=== PATIENT | female | born 1950 | race Caucasian/White ===

== ENCOUNTER 2020-08-26 13:22 | Emergency (ER) | payer MEDICARE, OTHER, SELFPAY ==
[2020-08-26] VITALS (22 sets, daily range): BP systolic 184–241; BP diastolic 79–109; PULSE 55–66; RESP 6–21; TEMP 36.7; O2SAT 96–100; BMI 31.2
--- NOTE | 2020-08-26 13:39 | DI.RAD.S_ITS ---
PROCEDURE: XR CHEST 1V INDICATIONS: chest pain TECHNIQUE: One view of the chest was acquired. COMPARISON: None. FINDINGS: Surgical changes and devices: None. Lungs and pleura: Lungs are clear. No pleural effusions or pneumothorax. Mediastinum: Mediastinal contours appear normal. Heart size is normal. Bones and chest wall: No suspicious bony lesions. Overlying soft tissues appear unremarkable. IMPRESSION: No acute cardiopulmonary abnormalities or focal airspace disease. Dictated by: Agapito Ruiz M.D. on 08/26/2020 at 13:20 Approved by: Agapito Ruiz M.D. on 08/26/2020 at 13:20
[2020-08-26 13:49] LABS: Add Manual Diff / Slide Review NO; Basophils Absolute Auto 100 /uL (0-100); Basophils Percent Auto 0.9 % (0-2); Eosinophils Absolute Auto 300 /uL (0-450); Eosinophils Percent Auto 2.4 % (2-4); Hematocrit 42.6 % (36-46); Hemoglobin 14.3 g/dL (12.0-16.0); Lymphocytes Absolute Auto 3200 /uL (1100-4500); Lymphocytes Percent Auto 29.6 % (25-40); Mean Corpuscular HGB Conc 33.4 % (30-36); Mean Corpuscular Hemoglobin 31.4 PG (26-34); Mean Corpuscular Volume 93.8 fL (80-100); Monocytes Absolute Auto 900 /uL (0-900); Monocytes Percent Auto 7.9 % (3-14); Neutrophils Absolute Auto 6400 /uL (1500-7000); Neutrophils Percent Auto 59.2 % (50-75); Platelet Count 286 X10^3/uL (150-400); Red Blood Cell Count 4.54 X10^6/uL (4.0-5.2); Red Cell Distribution Width 14.6 % (11.6-14.8); White Blood Cell Count 10.9 X10^3/uL (4.5-11.0)
--- NOTE | 2020-08-26 13:53 | ED.GENADULT ---
HPI - General Adult <ALBIN Maldonado - Last Filed: 08/26/20 19:06> General Chief complaint: Hypertension Stated complaint: Very high BP reading 234/94 @ 12:55ish Time Seen by Provider: 08/26/20 13:39 History of Present Illness HPI narrative: 70yo female with a history of allergies, takes albuterol for asthma, presents to emergency department for elevated blood pressure and a headache. She was recently diagnosed with hypertension on 08/17/2020 from her primary care provider, she was started on metoprolol. She states she takes the metoprolol at night, she believes that it makes her itch tissue takes Benadryl as well. Patient states she got up today and noticed a pounding in her head and a ?whooshing sound in my ears ?, she measured her blood pressure noticed it was 240 systolic. She states when she initially to the metoprolol on day 1 she felt like a tight band around her chest was relieved. She reports increased acid reflux over the past few weeks. She denies any other symptoms such as headache at this time, do full vision, blurry vision, vision loss, chest pain, abdominal pain, nausea, vomiting, diarrhea, or other concerns. She does states that she always has shortness of breath issues for the past few years and she believes this is due to allergies, this is relieved after administration of Benadryl. Related Data Previous Rx's Medication Instructions Recorded labetalol 50 mg PO BID 14 Days #14 tab 08/26/20 Allergies Allergy/AdvReac Type Severity Reaction Status Date / Time No Known Drug Allergies Allergy Verified 08/26/20 13:55 Review of Systems <ALBIN Maldonado - Last Filed: 08/26/20 19:06> Review of Systems Narrative: REVIEW OF SYSTEMS: GENERAL: Denies fever or chills. HENT: No head trauma. Reports headache that is not resolve, see HPI. CARDIOVASCULAR: No chest pain. Reports her blood pressure, see HPI. RESPIRATORY: No shortness of breath or cough. GASTROINTESTINAL: No nausea, vomiting, diarrhea, or constipation. MUSCULOSKELETAL: No pain, weakness, or deformities. INTEGUMENTARY: No rash, lesions, or pruritus. PSYCH: No behavior or mood changes. Patient History <ALBIN Maldonado - Last Filed: 08/26/20 19:06> Medical History No significant medical problems (Acute) Social History Smoking Status: Never smoker Exam <ALBIN Maldonado - Last Filed: 08/26/20 19:06> Initial Vital Signs Initial Vital Signs: Vital Signs Temperature 98.0 F 08/26/20 13:30 Pulse Rate 60 08/26/20 13:30 Respiratory Rate 18 08/26/20 13:30 Blood Pressure 239/109 H 08/26/20 13:30 Pulse Oximetry 100 08/26/20 13:30 PHYSICAL EXAMINATION: GENERAL: Well groomed, alert, and cooperative. Answers questions promptly and appropriately. Vital signs noted. HENT: Normocephalic, atraumatic. Ear canals patent. Oral mucosa is pink and moist. EYES: Conjunctiva pink, sclera white, no periorbital swelling. CHEST: Normal to inspection and without deformities. CARDIOVASCULAR: S1 and S2 sounds normal. Regular rate and rhythm, no murmurs, clicks, or bruits. No pedal edema. RESPIRATORY: Normal respiratory rate, trachea midline, airway patent. No stridor, nasal flaring or accessory muscle use. Lungs are clear in all harkins without wheeze, rhonchi, or crackles. MUSCULOSKELETAL: Normal gait and coordination. Equal tone and mass bilaterally. EXTREMITIES: CMS intact. Moves all extremities. SKIN: Warm, dry, soft, appropriate color for ethnicity. No lesions, rashes, or wounds. NEURO: Alert and Oriented X 3. Good coordination. No ataxia, or sensory deficits, or cognitive issues. PSYCH: Appropriate affect and mood. <Tyrese Hartley DO - Last Filed: 08/27/20 07:32> Initial Vital Signs Initial Vital Signs: Vital Signs Temperature 98.0 F 08/26/20 13:30 Pulse Rate 60 08/26/20 13:30 Respiratory Rate 18 08/26/20 13:30 Blood Pressure 239/109 H 08/26/20 13:30 Pulse Oximetry 100 08/26/20 13:30 Scores <ALBIN Maldonado - Last Filed: 08/26/20 19:06> GCS Amy coma scale eye opening: Spontaneous [place]ira coma scale verbal response: Orientated Amy coma scale motor response: Obey commands Amy coma scale total score: 15 Course <ALBIN Maldonado - Last Filed: 08/26/20 19:06> Course Course Narrative: 1421: Patient reports nausea, nursing states patient stated ?again nervous stomach. Blood pressure remains 223/91, small dose of labetalol ordered. Blood pressure significantly improved post administration of labetalol. Patient states she feels great, continues to deny headache. We discussed discharge with changing metoprolol to labetalol to hopefully prevent itching. We discussed importance of follow-up with PCP. Orders Ordered: Discontinued Medications Labetalol HCl (Trandate) 5 mg IV NOW ONE Stop: 08/26/20 14:22 Last Admin: 08/26/20 14:45 Dose: 5 mg Documented by: LATRELL Ondansetron HCl (Zofran) 4 mg IV NOW ONE Stop: 08/26/20 14:22 Last Admin: 08/26/20 14:45 Dose: 4 mg Documented by: LATRELL Consultations Consultation #1: Patient staffed with Dr. hartley discussed test, test results, and plan of care. Vital Signs Vital signs: Vital Signs - 8 hr 08/26/20 13:30 08/26/20 13:36 08/26/20 13:40 Temperature 98.0 F Pulse Rate 60 62 64 Respiratory Rate 18 6 L Blood Pressure 239/109 H 239/109 H Pulse Oximetry 100 99 100 08/26/20 13:50 08/26/20 14:00 08/26/20 14:05 Temperature Pulse Rate 59 L 62 59 L Respiratory Rate 13 9 L 21 Blood Pressure Pulse Oximetry 99 98 98 08/26/20 14:10 08/26/20 14:15 08/26/20 14:19 Temperature Pulse Rate 56 L 56 L 58 L Respiratory Rate 9 L 11 L 16 Blood Pressure 223/91 H Pulse Oximetry 99 99 97 08/26/20 14:20 08/26/20 14:25 08/26/20 14:30 Temperature Pulse Rate 60 58 L 59 L Respiratory Rate 16 13 14 Blood Pressure Pulse Oximetry 96 98 98 08/26/20 14:31 08/26/20 14:35 08/26/20 14:44 Temperature Pulse Rate 61 66 64 Respiratory Rate 13 17 Blood Pressure 241/105 H Pulse Oximetry 97 99 100 08/26/20 14:45 08/26/20 14:50 08/26/20 14:55 Temperature Pulse Rate 61 57 L 63 Respiratory Rate Blood Pressure 241/105 H Pulse Oximetry 99 99 97 08/26/20 14:56 08/26/20 15:00 08/26/20 15:55 Temperature Pulse Rate 61 57 L 55 L Respiratory Rate Blood Pressure 196/79 H 184/80 H 186/96 H Pulse Oximetry 96 98 08/26/20 15:56 Temperature Pulse Rate 55 L Respiratory Rate 15 Blood Pressure 186/89 H Pulse Oximetry 98 <Tyrese Hartley DO - Last Filed: 08/27/20 07:32> Orders Ordered: Discontinued Medications Labetalol HCl (Trandate) 5 mg IV NOW ONE Stop: 08/26/20 14:22 Last Admin: 08/26/20 14:45 Dose: 5 mg Documented by: LATRELL Ondansetron HCl (Zofran) 4 mg IV NOW ONE Stop: 08/26/20 14:22 Last Admin: 08/26/20 14:45 Dose: 4 mg Documented by: LATRELL Vital Signs Vital signs: Vital Signs - 8 hr 08/26/20 13:30 08/26/20 13:36 08/26/20 13:40 Temperature 98.0 F Pulse Rate 60 62 64 Respiratory Rate 18 6 L Blood Pressure 239/109 H 239/109 H Pulse Oximetry 100 99 100 08/26/20 13:50 08/26/20 14:00 08/26/20 14:05 Temperature Pulse Rate 59 L 62 59 L Respiratory Rate 13 9 L 21 Blood Pressure Pulse Oximetry 99 98 98 08/26/20 14:10 08/26/20 14:15 08/26/20 14:19 Temperature Pulse Rate 56 L 56 L 58 L Respiratory Rate 9 L 11 L 16 Blood Pressure 223/91 H Pulse Oximetry 99 99 97 08/26/20 14:20 08/26/20 14:25 08/26/20 14:30 Temperature Pulse Rate 60 58 L 59 L Respiratory Rate 16 13 14 Blood Pressure Pulse Oximetry 96 98 98 08/26/20 14:31 08/26/20 14:35 08/26/20 14:44 Temperature Pulse Rate 61 66 64 Respiratory Rate 13 17 Blood Pressure 241/105 H Pulse Oximetry 97 99 100 08/26/20 14:45 11/07/20 14:50 08/26/20 14:55 Temperature Pulse Rate 61 57 L 63 Respiratory Rate Blood Pressure 241/105 H Pulse Oximetry 99 99 97 08/26/20 14:56 08/26/20 15:00 08/26/20 15:55 Temperature Pulse Rate 61 57 L 55 L Respiratory Rate Blood Pressure 196/79 H 184/80 H 186/96 H Pulse Oximetry 96 98 08/26/20 15:56 Temperature Pulse Rate 55 L Respiratory Rate 15 Blood Pressure 186/89 H Pulse Oximetry 98 Medical Decision Making <Libertad ALBIN Whittaker - Last Filed: 08/26/20 19:06> Medical Records Medical records reviewed: Yes I reviewed the patient's medical records. Lab Data Lab results reviewed: Yes I reviewed the patient's lab results. Result diagrams: 08/26/20 13:43 08/26/20 13:43 Labs: Lab Results 08/26/20 08/26/20 08/26/20 Range/Units 13:43 13:43 13:43 WBC 10.9 (4.5-11.0) X10^3/uL RBC 4.54 (4.0-5.2) X10^6/uL Hgb 14.3 (12.0-16.0) g/dL Hct 42.6 (36-46) % MCV 93.8 (80-100) fL MCH 31.4 (26-34) PG MCHC 33.4 (30-36) % RDW 14.6 (11.6-14.8) % Plt Count 286 (150-400) X10^3/uL Neut % (Auto) 59.2 (50-75) % Lymph % (Auto) 29.6 (25-40) % Sierra % (Auto) 7.9 (3-14) % Eos % (Auto) 2.4 (2-4) % Baso % (Auto) 0.9 (0-2) % Neut # (Auto) 6400 (2780-4207) /uL Lymph # (Auto) 3200 (4568-8165) /uL Sierra # (Auto) 900 (0-900) /uL Eos # (Auto) 300 (0-450) /uL Baso # (Auto) 100 (0-100) /uL PT 10.9 (10.1-12.7) SECONDS INR 0.9 (0.9-1.3) APTT 35 (26.4-36.2) SECONDS Sodium 139 (137-145) mmol/L Potassium 4.2 (3.4-5.1) mmol/L Chloride 106 (98-107) mmol/L Carbon Dioxide 24 (22-32) mmol/L BUN 19 H (7-17) mg/dL Creatinine 0.83 (0.52-1.04) mg/dL Estimated GFR > 60.0 (>60) mL/min BUN/Creatinine Ratio 22.9 H (6-22) Glucose 99 (80-110) mg/dL Calcium 9.6 (8.4-10.2) mg/dL Total Bilirubin 0.5 (0.2-1.3) mg/dL AST 60 H (14-36) IU/L ALT 49 H (<35) IU/L Alkaline Phosphatase 70 (38-126) U/L Total Creatine Kinase 81 (30-135) U/L CK-MB (CK-2) TNP CK-MB (CK-2) Rel Index TNP Troponin I < 0.012 (0.01-0.034) ng/mL Total Protein 8.0 (6.3-8.2) g/dL Albumin 4.5 (3.5-5.0) g/dL Globulin 3.5 (1.7-4.1) g/dL Albumin/Globulin Ratio 1.3 (1.0-2.8) Lipase 150 (23-300) U/L Urine Dip Bedside Urine Glucose Negative Bedside Urine Bilirubin - Negative Bedside Urine Ketone - Negative Urine Specific Olcott 1.015 Bedside Urine Occult Blood - Negative Bedside Urine pH 6 Bedside Urine Protein - Negative Bedside Urine Urobilinogen - Negative Bedside Urine Nitrite - Negative Bedside Urine Leukocytes - Negative Esterase Point of care testing: Urine Dip Bedside Urine Glucose Negative Bedside Urine Bilirubin - Negative Bedside Urine Ketone - Negative Urine Specific Ol[place] 1.015 Bedside Urine Occult Blood - Negative Bedside Urine pH 6 Bedside Urine Protein - Negative Bedside Urine Urobilinogen - Negative Bedside Urine Nitrite - Negative Bedside Urine Leukocytes - Negative Esterase Imaging Data Chest x-ray: Radiologist's Impression: [address] [id number] XRay Report Signed Patient: Preeti Troy [facility]#: [id number] : 2Acct:[id number] Age/Sex: 70 / FDate of Service: 08/26/20 Loc: ED Accession Number: [id number] Procedure: XR chest 1V Ordering Provider: Tyrese Hartley D.O. PROCEDURE: XR CHEST 1V INDICATIONS: chest pain TECHNIQUE: One view of the chest was acquired. COMPARISON: None. FINDINGS: Surgical changes and devices: None. Lungs and pleura: Lungs are clear. No pleural effusions or pneumothorax. Mediastinum: Mediastinal contours appear normal. Heart size is normal. Bones and chest wall: No suspicious bony lesions. Overlying soft tissues appear unremarkable. IMPRESSION: No acute cardiopulmonary abnormalities or focal airspace disease. Dictated by: Agapito Ruiz M.D. on 08/26/2020 at 13:20 Approved by: Agapiot Ruiz M.D. on 08/26/2020 at 13:20 ECG Data Interpretation: 1342: Sinus rhythm, rate 55, LA interval 168, QTC 409. No ST elevation or ST depression. No ectopy. T-wave inversion noted in V1. EKG also viewed by Dr. Hartley per protocol. MDM Narrative Medical decision making narrative: 70-year-old female presents to the emergency department for elevated blood pressure and an episode of a headache. I suspect patient has chronic hypertension. Less concern for hypertensive crisis or emergency given lack of symptoms on presentation to the emergency department. Less concern for intracranial etiology given intact neuro examination, resolution of headache prior to ED admission, and lack of other concerning symptoms such as vision changes. Blood pressure responded to labetalol, there is some question that metoprolol may cause her itching. Interval was changed to labetalol. She was encouraged to follow up with PCP for further blood pressure medication monitoring and adjustment. Less concern for ACS given unremarkable laboratory work, negative troponin, and unremarkable EKG. Strict ED precautions given for new or worsening symptoms. <Tyrese Hartley DO - Last Filed: 08/27/20 07:32> Lab Data Labs: Lab Results 08/26/20 08/26/20 08/26/20 Range/Units 13:43 13:43 13:43 WBC 10.9 (4.5-11.0) X10^3/uL RBC 4.54 (4.0-5.2) X10^6/uL Hgb 14.3 (12.0-16.0) g/dL Hct 42.6 (36-46) % MCV 93.8 (80-100) fL MCH 31.4 (26-34) PG MCHC 33.4 (30-36) % RDW 14.6 (11.6-14.8) % Plt Count 286 (150-400) X10^3/uL Neut % (Auto) 59.2 (50-75) % Lymph % (Auto) 29.6 (25-40) % Sierra % (Auto) 7.9 (3-14) % Eos % (Auto) 2.4 (2-4) % Baso % (Auto) 0.9 (0-2) % Neut # (Auto) 6400 (2115-9202) /uL Lymph # (Auto) 3200 (0968-0771) /uL Sierra # (Auto) 900 (0-900) /uL Eos # (Auto) 300 (0-450) /uL Baso # (Auto) 100 (0-100) /uL PT 10.9 (10.1-12.7) SECONDS INR 0.9 (0.9-1.3) APTT 35 (26.4-36.2) SECONDS Sodium 139 (137-145) mmol/L Potassium 4.2 (3.4-5.1) mmol/L Chloride 106 (98-107) mmol/L Carbon Dioxide 24 (22-32) mmol/L BUN 19 H (7-17) mg/dL Creatinine 0.83 (0.52-1.04) mg/dL Estimated GFR > 60.0 (>60) mL/min BUN/Creatinine Ratio 22.9 H (6-22) Glucose 99 (80-110) mg/dL Calcium 9.6 (8.4-10.2) mg/dL Total Bilirubin 0.5 (0.2-1.3) mg/dL AST 60 H (14-36) IU/L ALT 49 H (<35) IU/L Alkaline Phosphatase 70 (38-126) U/L Total Creatine Kinase 81 (30-135) U/L CK-MB (CK-2) TNP CK-MB (CK-2) Rel Index TNP Troponin I < 0.012 (0.01-0.034) ng/mL Total Protein 8.0 (6.3-8.2) g/dL Albumin 4.5 (3.5-5.0) g/dL Globulin 3.5 (1.7-4.1) g/dL Albumin/Globulin Ratio 1.3 (1.0-2.8) Lipase 150 (23-300) U/L Urine Dip Bedside Urine Glucose Negative Bedside Urine Bilirubin - Negative Bedside Urine Ketone - Negative Urine Specific Olcott 1.015 Bedside Urine Occult Blood - Negative Bedside Urine pH 6 Bedside Urine Protein - Negative Bedside Urine Urobilinogen - Negative Bedside Urine Nitrite - Negative Bedside Urine Leukocytes - Negative Esterase Point of care testing: Urine Dip Bedside Urine Glucose Negative Bedside Urine Bilirubin - Negative Bedside Urine Ketone - Negative Urine Specific [place] 1.015 Bedside Urine Occult Blood - Negative Bedside Urine pH 6 Bedside Urine Protein - Negative Bedside Urine Urobilinogen - Negative Bedside Urine Nitrite - Negative Bedside Urine Leukocytes - Negative Esterase Discharge Plan Departure Patient Disposition: Home Clinical Impression: Hypertension Qualifiers: Hypertension type: unspecified Qualified Code(s): I10 - Essential (primary) hypertension Discharge Date/Time: 08/26/20 15:58 Instructions: DI for High Blood Pressure Activity Restrictions/Additional Instructions: Thank you for entrusting me with your care today. As discussed, your laboratory work, chest x-ray, and EKG are within normal limits. I have changed your blood pressure medication to labetalol as this may decreased itching. Take this twice a day. Discontinue metoprolol. Please do not take any decongestants, these are often found and cold medication, phenylephrine, and pseudoephedrine. Decreased use of Advil, ibuprofen, Aleve, and naproxen. Use Tylenol when needed. Please call your primary care provider to schedule a follow-up appointment. Return emergency department for any new or worsening symptoms especially chest pain, severe headaches, vision changes, or any other concerns. Prescriptions: New labetalol 100 mg tablet 50 mg PO BID 14 Days Qty: 14 RF: 0 Referrals: Clay Mensah DO [Primary Care Provider] - <Tyrese Hartley DO - Last Filed: 08/27/20 07:32> Cosign ED Attending Cosignature Attestation: Dr Hartley Co-Sign Statement: I was available for consultation during this patient's emergency department visit. This chart is signed by myself for administrative purposes only. I did not have direct contact with this patient during this visit. They were seen independently by the APC.
[2020-08-26 13:57] LABS: INR 0.9 (0.9-1.3); Prothrombin Time 10.9 SECONDS (10.1-12.7)
[2020-08-26 13:59] LABS: Alanine Aminotransferase 49 IU/L (<35); Albumin 4.5 g/dL (3.5-5.0); Albumin Globulin Ratio 1.3 (1.0-2.8); Alkaline Phosphatase 70 U/L (38-126); Aspartate Aminotransferase 60 IU/L (14-36); BUN Creatinine Ratio 22.9 (6-22); Bilirubin Total 0.5 mg/dL (0.2-1.3); Blood Urea Nitrogen 19 mg/dL (7-17); Calcium 9.6 mg/dL (8.4-10.2); Carbon Dioxide 24 mmol/L (22-32); Chloride 106 mmol/L (98-107); Creatine Kinase 81 U/L (30-135); Estimated Glomerular Filt Rate > 60.0 mL/min (>60); Globulin 3.5 g/dL (1.7-4.1); Glucose 99 mg/dL (80-110); HEMOLYSIS 42 (0-50); Lipase 150 U/L (23-300); PTT Partial Thromboplastin Tim 35 SECONDS (26.4-36.2); Potassium 4.2 mmol/L (3.4-5.1); Sodium 139 mmol/L (137-145)
[2020-08-26 14:11] LABS: Troponin I < 0.012 ng/mL (0.01-0.034)
[2020-08-26] MEDS: ONDANSETRON 4 MG/2 ML INJ IV (14:45)
[2020-08-26] MEDS: LABETALOL 20 MG/4 ML SYRINGE 5 MG IV (14:45)
--- NOTE | 2020-08-26 14:55 | PC.NURSE ---
provider aware of bradycardia in the upper 50s. OK'd labetalol administration
== END 2020-08-26 15:58 | disposition home or self-care (01) ==
PROVIDERS: Emergency Medicine; Emergency Provider Nurse Practitioner; PCP Family Medicine
DX: I10 Essential (primary) hypertension (principal); R51.9 Headache, unspecified; K21.9 Gastro-esophageal reflux disease without esophagitis; R07.9 Chest pain, unspecified
CPT/HCPCS: 36415; 71045; 80053; 81003; 82550; 83690; 84484; 85025; 85610; 85730; 93005; 96374; 96375; 99284; J2405

== ENCOUNTER 2022-07-28 11:22 | Emergency (ER) | payer MEDICARE, OTHER, SELFPAY ==
[2022-07-28] VITALS (7 sets, daily range): BP systolic 151–199; BP diastolic 78–110; PULSE 48–54; RESP 15–25; TEMP 36.8; O2SAT 95–99; BMI 30.7
--- NOTE | 2022-07-28 11:47 | DI.RAD.S_ITS ---
PROCEDURE: XR CHEST 1V INDICATIONS: chest pain TECHNIQUE: One view of the chest was acquired. COMPARISON: [facility], , XR CHEST 1V, 08/26/2020, 14:01. FINDINGS: Surgical changes and devices: None. Lungs and pleura: Lungs are clear. No pleural effusions or pneumothorax. Mediastinum: Mediastinal contours appear normal. Heart size is normal. Bones and chest wall: No suspicious bony lesions. Age-appropriate bony degenerative changes are seen. Overlying soft tissues appear unremarkable. IMPRESSION: Normal portable chest for age. Dictated by: Leonel Ospina M.D. on 07/28/2022 at 11:29 Approved by: Leonel Ospina M.D. on 07/28/2022 at 11:30
--- NOTE | 2022-07-28 12:49 | ED_ITS ---
HPI - Chest Pain <Ag Posey PA-C - Last Filed: 07/28/22 15:26> General Chief Complaint: Chest Pain Stated Complaint: chest pain/rt shoulder & neck pain Time Seen by Provider: 07/28/22 12:02 Source: patient Mode of arrival: Ambulatory Limitations: no limitations History of Present Illness HPI narrative: Patient is a 72-year-old female who presents to the emergency room today with complaint chest pain that started this morning at about 10 30. Patient describes chest pain as being mid epigastric pain that started at about 10 30 and initially rated it through her throat and into her right jaw and into her right shoulder into the right neck. Patient describes the pain as a squeezing tightening type pain. Patient admits to having this type pain in the past but states that it was less intense and resolved on its own. Describes this pain as lasting for about 10 minutes total. Had associated shortness of breath but think it was totally related to anxiety related to the entire event. Admits to having a history of reflux esophagitis which she takes Pepcid p.o.. States she remembers eating at a [employer] restaurant last night and thinks that this could be associated with that. Also has a current history of hypertension which is treated lisinopril and labetalol. Also has a history of asthma and takes albuterol and Atrovent as needed. Also admits to taking Imitrex as needed for migraines. Denies any flutter or palpitations related to this incident. Also denies any or GI concerns related to this incident. Related Data Allergies Allergy/AdvReac Type Severity Reaction Status Date / Time No Known Drug Allergies Allergy Verified 08/26/20 13:55 Review of Systems <Ag Posey PA-C - Last Filed: 07/28/22 15:26> Review of Systems Narrative: R.O.S.: General: No fever, chills or fatigue. Cardiovascular: Chest pain Respiratory: No S.O.B. HEENT: No congestion, ear pain, rhinorrhea, sore throat or tinnitus Gastrointestinal: No nausea or vomiting : No urinary concerns Skin: No rash or associated abnormalities Musculoskeletal: No pain in muscles or joints, no limitation of range of motion, no paresthesia or numbness. ?? Neurological: Awake, alert and in not apparent distress. No Headaches, changes in vision or other related neurological concerns. Patient History <Ag Posey PA-C - Last Filed: 07/28/22 15:26> Medical History (Updated 07/28/22 @ 15:12 by Ag Posey PA-C) No significant medical problems Social History Smoking Status: Never smoker Smoking Status: Never smoker alcohol intake frequency: a few times a week Alcohol type: wine Substance Use Type: does not use Exam <Ag Posey PA-C - Last Filed: 07/28/22 15:26> Narrative Exam Narrative: Physical Exam: ? General: normal appearance, well developed, well nourished, alert, and awake. Not in acute distress. ? Head: Normocephalic, no lesions. Chest: Lungs CTAB, no rales, rhonchi or wheezes. ?? Heart: RRR, no murmurs, rubs or gallops. Eyes: PERRLA, EOM's full, conjunctivae clear. ? Neuro: Physiological, no localizing findings, CN3-12 intact. ?? Extremities: Warm, well perfused, FROM, no deformities, no edema. ?? Skin: Normal, no rashes, no lesions noted. ?? PSYCHIATRIC: The mood is good, no blunted affect. Speech is clear. Thought process is linear, thought content is appropriate. The voice is without significant inflection. Gastrointestinal: Soft; NT; ND; Pos BS with Neg. rebound tenderness. No scars or major deformities noted on Visual Inspection. Initial Vital Signs Initial Vital Signs: Vital Signs Temperature 98.3 F 07/28/22 11:44 Pulse Rate 51 L 07/28/22 11:44 Respiratory Rate 20 07/28/22 11:44 Blood Pressure 170/80 H 07/28/22 11:44 Pulse Oximetry 97 07/28/22 11:44 Oxygen Delivery Method 07/28/22 11:44 <Tyrese Hartley DO - Last Filed: 07/28/22 15:45> Initial Vital Signs Initial Vital Signs: Vital Signs Temperature 98.3 F 07/28/22 11:44 Pulse Rate 51 L 07/28/22 11:44 Respiratory Rate 20 07/28/22 11:44 Blood Pressure 170/80 H 07/28/22 11:44 Pulse Oximetry 97 07/28/22 11:44 Oxygen Delivery Method 07/28/22 11:44 Course <Ag Posey PA-C - Last Filed: 07/28/22 15:26> Orders Ordered: ED Orders 07/28/22 11:47 XR chest 1V Stat EKG-12 Lead Stat 07/28/22 12:28 Complete Blood Count AUTO DIFF Stat 07/28/22 13:30 Comprehensive Metabolic Panel Stat Lipase Stat Magnesium Stat Troponin & CK Cardiac Panel Stat Discontinued Medications Ketorolac Tromethamine (Ketorolac 30 Mg/Ml Vial) 15 mg IM NOW ONE Stop: 07/28/22 14:59 Last Admin: 07/28/22 15:42 Dose: Not Given Documented By: NR Vital Signs Vital signs: Vital Signs - 8 hr 07/28/22 11:44 07/28/22 12:03 07/28/22 12:19 Temperature 98.3 F Pulse Rate 51 L 51 L Respiratory Rate 20 18 Blood Pressure 170/80 H 199/78 H Pulse Oximetry 97 98 Oxygen Delivery Method Room Air 07/28/22 12:19 07/28/22 12:30 07/28/22 12:31 Temperature Pulse Rate 54 L 53 L Respiratory Rate 17 25 H Blood Pressure 195/83 H Pulse Oximetry 99 99 Oxygen Delivery Method 07/28/22 12:31 07/28/22 13:00 07/28/22 13:01 Temperature Pulse Rate 51 L 48 L 48 L Respiratory Rate 24 15 23 Blood Pressure Pulse Oximetry 99 96 95 Oxygen Delivery Method 07/28/22 13:01 Temperature Pulse Rate Respiratory Rate Blood Pressure 151/110 H Pulse Oximetry Oxygen Delivery Method <Tyrese Hartley DO - Last Filed: 07/28/22 15:45> Orders Ordered: ED Orders 07/28/22 11:47 XR chest 1V Stat EKG-12 Lead Stat 07/28/22 12:28 Complete Blood Count AUTO DIFF Stat 07/28/22 13:30 Comprehensive Metabolic Panel Stat Lipase Stat Magnesium Stat Troponin & CK Cardiac Panel Stat Discontinued Medications Ketorolac Tromethamine (Ketorolac 30 Mg/Ml Vial) 15 mg IM NOW ONE Stop: 07/28/22 14:59 Last Admin: 07/28/22 15:42 Dose: Not Given Documented By: NR Vital Signs Vital signs: Vital Signs - 8 hr 07/28/22 11:44 07/28/22 12:03 07/28/22 12:19 Temperature 98.3 F Pulse Rate 51 L 51 L Respiratory Rate 20 18 Blood Pressure 170/80 H 199/78 H Pulse Oximetry 97 98 Oxygen Delivery Method Room Air 07/28/22 12:19 07/28/22 12:30 07/28/22 12:31 Temperature Pulse Rate 54 L 53 L Respiratory Rate 17 25 H Blood Pressure 195/83 H Pulse Oximetry 99 99 Oxygen Delivery Method 07/28/22 12:31 07/28/22 13:00 07/28/22 13:01 Temperature Pulse Rate 51 L 48 L 48 L Respiratory Rate 24 15 23 Blood Pressure Pulse Oximetry 99 96 95 Oxygen Delivery Method 07/28/22 13:01 Temperature Pulse Rate Respiratory Rate Blood Pressure 151/110 H Pulse Oximetry Oxygen Delivery Method MDM - Chest Pain <Ag Posey PA-C - Last Filed: 07/28/22 15:26> Lab Data Result diagrams: 07/28/22 12:28 07/28/22 13:30 Labs: Lab Results 07/28/22 07/28/22 Range/Units 12:28 13:30 WBC 7.3 (4.5-11.0) X10^3/uL RBC 4.22 (4.0-5.2) X10^6/uL Hgb 13.1 (12.0-16.0) g/dL Hct 39.2 (36-46) % MCV 92.8 (80-100) fL MCH 31.1 (26-34) PG MCHC 33.5 (30-36) % RDW 14.1 (11.6-14.8) % Plt Count 313 (150-400) X10^3/uL Neut % (Auto) 60.0 (50-75) % Lymph % (Auto) 27.3 (25-40) % [place] % (Auto) 8.6 (3-14) % Eos % (Auto) 3.2 (2-4) % Baso % (Auto) 0.9 (0-2) % Neut # (Auto) 4400 (4215-7138) /uL Lymph # (Auto) 2000 (1854-7141) /uL [place] # (Auto) 600 (0-900) /uL Eos # (Auto) 200 (0-450) /uL Baso # (Auto) 100 (0-100) /uL Sodium 140 (137-145) mmol/L Potassium 4.6 (3.4-5.1) mmol/L Chloride 106 (98-107) mmol/L Carbon Dioxide 24 (22-32) mmol/L BUN 16 (7-17) mg/dL Creatinine 0.80 (0.52-1.04) mg/dL Estimated GFR > 60 (>60) mL/min BUN/Creatinine Ratio 20.0 (6-22) Glucose 101 (80-110) mg/dL Calcium 9.2 (8.4-10.2) mg/dL Magnesium 1.8 (1.6-2.3) mg/dL Total Bilirubin 0.4 (0.2-1.3) mg/dL AST 25 (14-36) IU/L ALT 18 (<35) IU/L Alkaline Phosphatase 69 (38-126) U/L Total Creatine Kinase 81 (30-135) U/L CK-MB (CK-2) TNP CK-MB (CK-2) Rel Index TNP Troponin I < 0.012 (0.01-0.034) ng/mL Total Protein 7.5 (6.3-8.2) g/dL Albumin 4.3 (3.5-5.0) g/dL Globulin 3.2 (1.7-4.1) g/dL Albumin/Globulin Ratio 1.3 (1.0-2.8) Lipase 144 (23-300) U/L ECG Data Interpretation: EKG has kerry cardia and Left axis deviation with no obvious left bundle-branch block ST segment elevation or Q-wave morphology. [facility] Narrative Medical decision making narrative: Patient is a 72-year-old female who presents to the emergency room today with complaint chest pain that started this morning while she was out with her sband for breakfast. Through the interview patient admits to having a history of refill of reflux esophagitis come hypertension and stimulant bouts of chest pain in the past but not as significant as this 1. Physical exam was unremarkable EKG was unremarkable labs have been ordered and awaiting review. Working differential diagnosis at this point is highly suspected reflux esophagitis. We will await remaining lab results. Lab results were reviewed did not reveal any emergent cardiac or other related concerns at this time. Patient however still has an elevated blood pressure with normal to slowed heart rate. Patient will be discharged on working diagnosis of reflux esophagitis and elevated blood pressure.. Patient was discharged and advised follow-up with her primary care physician. Patient was also advised to return to emergency room if any emergent concerns arise. Patient agrees with plan <Tyrese Hartley, - Last Filed: 07/28/22 15:45> Lab Data Labs: Lab Results 07/28/22 07/28/22 Range/Units 12:28 13:30 WBC 7.3 (4.5-11.0) X10^3/uL RBC 4.22 (4.0-5.2) X10^6/uL Hgb 13.1 (12.0-16.0) g/dL Hct 39.2 (36-46) % MCV 92.8 (80-100) fL MCH 31.1 (26-34) PG MCHC 33.5 (30-36) % RDW 14.1 (11.6-14.8) % Plt Count 313 (150-400) X10^3/uL Neut % (Auto) 60.0 (50-75) % Lymph % (Auto) 27.3 (25-40) % [place] % (Auto) 8.6 (3-14) % Eos % (Auto) 3.2 (2-4) % Baso % (Auto) 0.9 (0-2) % Neut # (Auto) 4400 (0297-1149) /uL Lymph # (Auto) 2000 (1668-6941) /uL [place] # (Auto) 600 (0-900) /uL Eos # (Auto) 200 (0-450) /uL Baso # (Auto) 100 (0-100) /uL Sodium 140 (137-145) mmol/L Potassium 4.6 (3.4-5.1) mmol/L Chloride 106 (98-107) mmol/L Carbon Dioxide 24 (22-32) mmol/L BUN 16 (7-17) mg/dL Creatinine 0.80 (0.52-1.04) mg/dL Estimated GFR > 60 (>60) mL/min BUN/Creatinine Ratio 20.0 (6-22) Glucose 101 (80-110) mg/dL Calcium 9.2 (8.4-10.2) mg/dL Magnesium 1.8 (1.6-2.3) mg/dL Total Bilirubin 0.4 (0.2-1.3) mg/dL AST 25 (14-36) IU/L ALT 18 (<35) IU/L Alkaline Phosphatase 69 (38-126) U/L Total Creatine Kinase 81 (30-135) U/L CK-MB (CK-2) TNP CK-MB (CK-2) Rel Index TNP Troponin I < 0.012 (0.01-0.034) ng/mL Total Protein 7.5 (6.3-8.2) g/dL Albumin 4.3 (3.5-5.0) g/dL Globulin 3.2 (1.7-4.1) g/dL Albumin/Globulin Ratio 1.3 (1.0-2.8) Lipase 144 (23-300) U/L Discharge Plan Departure Patient Disposition: Home Clinical Impression: Chest pain, Esophagitis, reflux, Atypical chest pain, Elevated blood pressure reading with diagnosis of hypertension Instructions: DI for Chest Pain, DI for Esophagitis Activity Restrictions/Additional Instructions: *You have been diagnosed with Chest pain secondary to reflux esophagitis and elevated blood pressure. Labs and diagnostics have not revealed any acute emergent cardiac related rash. Suggest you refrain from eating spicy foods and continue to take your anti acid medications. I also advised you to take it before eating spicy foods. In regards to her elevated blood pressure suggest you continue to take your blood pressure medications as ordered and follow-up with your primary care provider in that regard. Also please return to the emergency room if any emergent concerns arise. [ ] *What to do: *Please continue to take your regular medications as directed. [ ] New medication prescriptions sent to your pharmacy: [ ] [ ] New medication written as a paper prescription [x] No new medications given *Please follow up with your primary care provider in 2-3 days, call for an appointment. Let them know you were seen in the Emergency Department and that we ask that you be seen in follow up. We will electronically transmit a record of today's note if your PCP is in our system *If you do not have a primary care provider please contact the [facility] Resource line at [phone]. They will ask some questions about your medical history and help get you set up with a doctor in the community. *Return to Emergency Department if you should have any new, worsening or concerning symptoms, such as [fever greater than 101 F, shaking chills, worsening pain, persistent vomiting or other bothersome symptoms] Referrals: Clay Mensah DO [Primary Care Provider] - Visit Report Forms: Patient Portal/API <Tyrese Hartley DO - Last Filed: 07/28/22 15:45> Cosign ED Attending Cosignature Attestation: Dr Hartley Co-Sign Statement: I was available for consultation during this patient's emergency department visit. This chart is signed by myself for administrative purposes only. I did not have direct contact with this patient during this visit. They were seen independently by the APC.
[2022-07-28 12:54] LABS: Add Manual Diff / Slide Review NO; Basophils Absolute Auto 100 /uL (0-100); Basophils Percent Auto 0.9 % (0-2); Eosinophils Absolute Auto 200 /uL (0-450); Eosinophils Percent Auto 3.2 % (2-4); Hematocrit 39.2 % (36-46); Hemoglobin 13.1 g/dL (12.0-16.0); Lymphocytes Absolute Auto 2000 /uL (1100-4500); Lymphocytes Percent Auto 27.3 % (25-40); Mean Corpuscular HGB Conc 33.5 % (30-36); Mean Corpuscular Hemoglobin 31.1 PG (26-34); Mean Corpuscular Volume 92.8 fL (80-100); Monocytes Absolute Auto 600 /uL (0-900); Monocytes Percent Auto 8.6 % (3-14); Neutrophils Absolute Auto 4400 /uL (1500-7000); Platelet Count 313 X10^3/uL (150-400); Red Blood Cell Count 4.22 X10^6/uL (4.0-5.2); Red Cell Distribution Width 14.1 % (11.6-14.8); White Blood Cell Count 7.3 X10^3/uL (4.5-11.0)
--- NOTE | 2022-07-28 13:16 | PC.NURSE ---
Provider notified of consistent high blood pressure.
[2022-07-28 14:30] LABS: Alanine Aminotransferase 18 IU/L (<35); Albumin 4.3 g/dL (3.5-5.0); Albumin Globulin Ratio 1.3 (1.0-2.8); Alkaline Phosphatase 69 U/L (38-126); Aspartate Aminotransferase 25 IU/L (14-36); Bilirubin Total 0.4 mg/dL (0.2-1.3); Blood Urea Nitrogen 16 mg/dL (7-17); Calcium 9.2 mg/dL (8.4-10.2); Carbon Dioxide 24 mmol/L (22-32); Chloride 106 mmol/L (98-107); Creatine Kinase 81 U/L (30-135); Estimated Glomerular Filt Rate > 60 mL/min (>60); Globulin 3.2 g/dL (1.7-4.1); Glucose 101 mg/dL (80-110); HEMOLYSIS < 15 (0-50); Lipase 144 U/L (23-300); Magnesium 1.8 mg/dL (1.6-2.3); Potassium 4.6 mmol/L (3.4-5.1); Sodium 140 mmol/L (137-145); Total Protein 7.5 g/dL (6.3-8.2)
[2022-07-28 14:42] LABS: Troponin I < 0.012 ng/mL (0.01-0.034)
== END 2022-07-28 15:43 | disposition home or self-care (01) ==
PROVIDERS: Emergency Medicine; Emergency Provider Physician Assistant; PCP Family Medicine
DX: R07.9 Chest pain, unspecified (principal); K21.00 Gastro-esophageal reflux disease with esophagitis, without bleeding; I10 Essential (primary) hypertension
CPT/HCPCS: 36415; 71045; 80053; 82550; 83690; 83735; 84484; 85025; 93005; 93010; 99283; 99284